=== PATIENT | female | born 1975 | race African-American/Black ===

== ENCOUNTER 2021-04-10 13:05 | Emergency (ER) | payer MEDICAID ==
[~2021-04-10] VITALS: Ht 160 cm; Wt 62.0 kg
[2021-04-10 13:19] VITALS: BP 105/61
[2021-04-10] MEDS ORDERED: SODIUM CHLORIDE 0.9% 1,000 ML IV ONE (13:30)
[2021-04-10] MEDS ORDERED: PANTOPRAZOLE SODIUM 40 MG/VIAL IV ONE (13:30)
[2021-04-10 14:40] LABS: CLARITY URINE CLEAR (CLEAR); COLOR URINE YELLOW (YELLOW); KETONES URINE NEGATIVE (NEGATIVE); LEUKOCYTE ESTERASE URINE NEGATIVE (NEGATIVE); NITRITE URINE NEGATIVE (NEGATIVE); OCCULT BLOOD URINE NEGATIVE (NEGATIVE); PROTEIN URINE NEGATIVE (NEGATIVE); SPECIFIC GRAVITY URINE 1.019 (1.005-1.030); UROBILINOGEN URINE 0.2 E.U./dL (0.2-1.0)
[2021-04-10 14:43] LABS: CHLORIDE 107 mEq/L (98-107)
[2021-04-10 14:44] LABS: PROTHROMBIN TIME 10.9 sec (9.6-11.0)
[2021-04-10 14:45] LABS: BASOPHILS % 0.8 % (0.0-2.0); EOSINOPHILS % 1.2 % (0.0-5.0); HEMATOCRIT. 39.6 % (36.0-48.0); HEMOGLOBIN. 13.3 g/dL (12.0-16.0); LYMPHOCYTES % 41.2 % (20.0-50.0); MEAN CORPUSCULAR HEMOGLOBIN 29.1 pg (28.0-32.0); MEAN CORPUSCULAR VOLUME 87.1 fL (81.0-99.0); MEAN PLATELET VOLUME 8.4 fl (7.4-10.4); MONOCYTES % 8.2 % (2.0-8.0); NEUTROPHILS % 48.6 % (40.0-76.0); PLATELET 303 x1000/uL (130-400); RED BLOOD CELL COUNT 4.55 mill/uL (4.2-5.4); RED CELL DISTRIBUTION WIDTH 15.3 % (11.6-14.6)
[2021-04-10 14:51] LABS: ETHANOL BLOOD < 10 mg/dL
[2021-04-10 14:54] LABS: HCG SCREEN NEGATIVE
[2021-04-10 15:02] LABS: *AMPHETAMINES SCREEN URINE NEGATIVE (NEGATIVE); *BARBITURATES SCREEN URINE NEGATIVE (NEGATIVE); *BENZODIAZEPINES SCREEN URINE NEGATIVE (NEGATIVE); *COCAINE SCREEN URINE NEGATIVE (NEGATIVE)
[2021-04-10 15:03] LABS: METHADONE URINE SCREEN NEGATIVE (NEGATIVE); OPIATES URINE SCREEN NEGATIVE (NEGATIVE); PHENCYCLIDINE URINE SCREEN NEGATIVE (NEGATIVE)
[2021-04-10 15:08] LABS: CANNABINOID URINE SCREEN PRESUMTIVE POSITIVE (NEGATIVE)
[2021-04-10] MEDS ORDERED: HYDR25SU37 RC (17:34)
[2021-04-10] MEDS ORDERED: DOCU-150 MT (17:34)
== END 2021-04-10 17:46 | disposition home or self-care (01) ==
LOC: ER 13:05
DX: K62.5 Hemorrhage of anus and rectum (principal); K64.4 Residual hemorrhoidal skin tags; F31.9 Bipolar disorder, unspecified; F20.9 Schizophrenia, unspecified; J45.909 Unspecified asthma, uncomplicated
CPT/HCPCS: 36415; 80053; 80305; 80320; 81003; 81025; 83690; 84703; 85025; 85610; 86850; 86900; 86901; 93005; 96361; 96374; 99284; C9113; J7030; G0480